=== PATIENT | male | born 1985 | race Two or more races ===

== ENCOUNTER 2019-01-18 12:53 | Emergency (ER) | payer OTHER ==
[2019-01-18 13:01] VITALS: BP 109/57; PULSE 75; TEMP 98; BMI 25.4
--- NOTE | 2019-01-18 14:18 | PDOC ---
History of Present Illness - General Chief Complaint: Pain Stated Complaint: SHARP NECK PAIN Time Seen by Provider: 01/18/19 13:15 - History of Present Illness Initial Comments: 01/18/19 14:15 34-year-old male without comorbidities presents for evaluation of neck pain without radicular symptoms. Seen in the emergency room about 3 weeks ago given a prescription for anti-inflammatories and muscle relaxers told he had a swollen lymph node his neck pain never really resolved. He has no systemic or radicular symptoms. Past History - Past Medical History Allergies/Adverse Reactions: Allergies Allergy/AdvReac Type Severity Reaction Status Date / Time No Known Allergies Allergy Verified 01/18/19 13:01 COPD: No - Psycho Social/Smoking Cessation Hx Smoking History: Never smoked Information on smoking cessation initiated: No Hx Alcohol Use: No Drug/Substance Use Hx: No Review of Systems - Review of Systems Constitutional: No: Chills, Fever, Malaise, Night Sweats Musculoskeletal: Yes: Neck Pain Neurological: No: Headache, Numbness, Paresthesia, Tingling, Weakness *Physical Exam - Vital Signs Last Vital Signs Temp Pulse Resp BP Pulse Ox 98 F 75 18 109/57 L 100 01/18/19 12:59 01/18/19 12:59 01/18/19 12:59 01/18/19 12:59 01/18/19 12:59 - Physical Exam Comments: 01/18/19 14:16 Cervical spine skin color and temperature normal range of motion is slightly limited. There is no midline tenderness mild paracervical musculature tenderness without spasm 5 out of 5 strength bilateral upper extremities without gross sensorimotor deficits neurovascular intact. ED Treatment Course - RADIOLOGY Radiology Studies Ordered: Category Date Time Status SPINE-CERVICAL [RAD] Stat Radiology 01/18/19 13:59 Taken Medical Decision Making - Medical Decision Making 01/18/19 14:16 X-rays of the cervical spine show a reversal of the cervical lordosis bridging osteophyte at 3 and 4 no acute fracture trauma or other destructive process. 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 Follow-up with neurosurgery in 1 to 2 days without fail for further evaluation and treatment options. Return to the emergency room for worsening symptoms. You may also take Tylenol for additional pain medication. - Post Discharge Activity
== END 2019-01-18 14:22 | disposition home or self-care (01) ==
LOC: JERFT 12:53
DX: M13.88 Other specified arthritis, other site (principal)
CPT/HCPCS: 72050-TC-FY; 99281-25